=== PATIENT | female | born 1940 | race Caucasian/White ===

== ENCOUNTER 2023-11-23 09:54 | Emergency (ER) | payer MEDICARE, OTHER, SELFPAY ==
[2023-11-23] VITALS (9 sets, daily range): BP systolic 99–130; BP diastolic 43–95; PULSE 66–77; BMI 19.9
--- NOTE | 2023-11-23 10:59 | ED.GENMED ---
History of Present Illness
General
Chief Complaint: Dizziness
Source: patient and spouse
Exam Limitations: none
Time Seen by Provider: 11/23/23 10:27
Nursing documentation reviewed up to this point in time: agreed with
Travel History
Have you had any contact with someone who has COVID-19?: No
Do you have any symptoms of coronavirus? Fever > 100 degrees, chills, cough, shortness of breath, sore throat, loss of taste or smell, muscle aches, or headache?: No
History of Present Illness
History of Present Illness:
The patient is a 83-year-old female who is a history of A-fib, on Xarelto. She reports that over the last 2 to 3 days, she has had pretty continuous dizziness. She reports she has had vertigo before and it kind of feels like this but not exactly.
Patient also feels slightly lightheaded. She denies vision changes, palpitations, shortness of breath and chest pain. She denies recent nausea, vomiting, diarrhea and fever. Patient reports the symptoms wax and wane in intensity. She denies
recent congestion, ear pain and ear ringing. She denies headache.
Past History
Past History
ED Past Medical History: Arrthythmia (Paroxysmal atrial fibrillation.), GERD and Other (laryngeal reflux, vertigo)
ED Past Surgical History: Tonsilectomy
Social History
Tobacco: Non-smoker
Alcohol: None
Drug: None
Personal:
Living: with family
Employment: Retired
Family History
Family History: Other (nc)
Review of Systems
Review of Systems
Allergies reviewed?: Yes
All Other Systems: ROS reviewed and negative except as documented in HPI and ROS
Constitutional: Reports no symptoms
EENT: Reports no symptoms
Respiratory: Reports no symptoms
Cardiac: Reports no symptoms
ABD/GI: Reports no symptoms
: Reports no symptoms
Musculoskeletal: Reports no symptoms
Skin: Reports no symptoms
Neurological: Reports dizzy
Endocrine: Reports no symptoms
Hematologic/Lymphatic: Reports no symptoms
Psychiatric: Reports no symptoms
Phy Exam
Physical Exam
Physical Exam:
Physical Exam
General: no apparent distress, not acutely ill, well and comfortable appearing, smiling
Neck: supple. no meningeal signs. normal psoterior pharynx
Heart: s1/s2 regular rate and rhythm, no murmur. equal radial pulses.
Lungs: no acute respiratory distress. clear bilaterally
Abdomen: normal bowel sounds. not tender. no CVAT
Neuro: alert and orientedx3. no focal neurological deficits. Patient walk steadily to ED examining room. Extraocular muscles intact. 5 out of 5 strength in all extremities without drift. Normal [id number]. Normal
[id number] visual bojorquez intact
Skin: no rash
Psychiatric: well kept. interactive and cooperative
Extremities: no edema. no calf tenderness. negative homans. good distal pulses
Course
Orders/Labs/Results
Orders:
Orders
11/23/23 10:04
Electrocardiogram (*1) Urgent
Reason for Study: Chest Pain
EKG- Treatment ONCE
11/23/23 11:00
Orthostatic VS- Treatment ONCE
11/23/23 11:01
CT Head W/o Iv Contrast Urgent
Comment:
Reason For Exam: dizziness
11/23/23 11:47
Complete Blood Count/With Diff Urgent
Comprehensive Metabolic Panel Urgent
Lipase Urgent
Comment: ADD ON
Troponin I Urgent
Urinalysis Reflex To Culture Urgent
Date Specimen was Collected: 11/23/23
Time Specimen was Collected: 11:02
Urine Microscopic Reflex Cult Urgent
Urine Culture Urgent
OLGA LIDIA Source: U
Specimen Description:
Date Specimen was Collected: 11/23/23
Time Specimen was Collected: 11:02
11/23/23 12:37
Add On- LAB Urgent
Tests Added?: lipase
11/23/23 12:38
0.9% Sodium Chloride 1000 ml [Nss] 1,000 ml IV BOLUS
11/23/23 13:00
PT Consult [Pt Eval And Treat] Urgent
Treatment: dizziness
Activity Level: Out of Bed-Early Mobility
11/23/23 14:16
0.9% Sodium Chloride 500 ml [Nss] 500 ml IV BOLUS
11/23/23 15:32
Sulfamethox./Trimethoprim Ds [Bactrim Ds 800 mg/160 mg] 1 tablet PO NOW STA
Abnormal Lab Results
11/23/23
11:47
WBC 14.6 H 10^3/uL
(4.8-10.8)
RBC 3.76 L 10^6/uL
(4.20-5.40)
Hct 36.8 L %
(37.0-47.0)
MCH 33.2 H pg
(27.0-31.0)
MPV 10.9 H fL
(7.4-10.4)
Abs Immat Gran (auto) 0.1 H 10^3/uL
(0-0.05)
Absolute Neuts (auto) 12.6 H 10^3/uL
(1.4-6.5)
Absolute Lymphs (auto) 0.7 L 10^3/uL
(1.2-3.4)
Absolute Monos (auto) 1.2 H 10^3/uL
(0.1-0.6)
Neutrophils % 86.0 H %
(42.2-75.2)
Lymphocytes % 4.9 L %
(20.5-51.1)
BUN 22 H mg/dl
(7-17)
Creatinine 1.1 H mg/dL
(0.6-1.0)
Glucose 109 H mg/dl
(70-99)
AST 46 H U/L
(14-36)
Urine Ketones 1+ A
(Negative)
Ur Occult Blood Reflex 1+ A
(Negative)
Leukocyte Esterase Rfl 2+ A
(Negative)
Urine WBC (Reflex) 11-15 A /HPF
(0-5)
Urine Bacteria (Reflex) Few A
(Negative)
11/23/23 11:47
11/23/23 11:47
Vital Signs
Initial and Last Documented VS:
Initial Vital Signs
Temp Pulse Resp BP Pulse Ox
98.2 F 80 16 115/58 99
11/23/23 10:01 11/23/23 10:01 11/23/23 10:01 11/23/23 10:01 11/23/23 10:01
Last Documented Vital Signs
Temp Pulse Resp BP Pulse Ox
98.2 F 80 18 118/57 96
11/23/23 10:01 11/23/23 10:01 11/23/23 12:12 11/23/23 15:00 11/23/23 15:15
MDM/Problems Addressed
Differential Diagnosis Includes:
Orthostatic dizziness, CVA, benign positional vertigo
MDM/Problems Addressed:
Patient presents with acute dizziness
Chronic conditions affecting care: Arrhythmia
Acute Exacerbation and/or Progression of Chronic Illness: Arrhythmia
*Radiology
Radiology exam reviewed: radiology read reviewed
*Pulse Oximetry
Patient hypoxic: no
*EKG
Interpreted by ED Provider?: Yes
Interpretation: abnormal
Comparison EKG: no changes
Rate: normal
Rhythm: sinus
[place]: left axis deviation
Interval: normal interval
QRS Pattern: left vent hypertrophy
Ischemia: non-specific ST changes
*Card Dealer Interpretation
Rate: normal
Interpretation: normal
Rhythm: sinus
*Critical Care Note
Total Time (30-74mins, 75-104mins- exclusive of procedures): Not Applicable
Data Reviewed
Review of Other/Old Records Reveals: Other (Cardiology office note reviewed from 2020 patient reported history of chronic A-fib and left bundle branch block)
Source: patient and spouse
Update Note
Update Note:
12:53 PM patient still extremely well and comfortable. I told patient she has an elevated white blood cell count but she denies sore throat, recent fever, headache, cough and urinary symptoms. She denies being on recent thyroids. Is unclear what
is causing the white blood cell count to be elevated. Her lungs are completely clear and there is no clinical sign of pneumonia. She adamantly denies a cough. She adamantly denies abdominal pain and her abdomen remains soft and nontender
3 PM patient states she feels so much better with the IV fluids. I suspect her dizziness was due to an orthostatic cause, as her blood pressure dropped into the 90s when she stood up with physical therapy. Patient has a normal neurological exam
and there is no sign of stroke. she is walking around steadily
ED Attending Note
-
Portions of this chart may have been created with voice recognition software.� Occasional wrong word or��sound alike� substitutions may have occurred due to the inherent limitations of voice recognition software.
Discharge Plan
Departure
Patient Disposition: Home (Routine Discharge)
Date of Disposition: 11/23/23
Time of Disposition: 15:31
Patient with high blood pressure during this ER visit?: No
Condition: Good
Covid-19: Not Applicable
Discharge Problem:
Orthostatic dizziness, Acute UTI
Instructions: Urinary Tract Infection, Adult ED, Dizziness
Prescriptions:
New
sulfamethoxazole-trimethoprim [Bactrim DS] 800-160 mg tablet
1 tab PO BID Qty: 13 0RF
No Action
flaxseed-omega3,6,9-fatty acid 1 EACH capsule
1 ea PO Q48H
sodium chloride [Saline Nasal] 50 SPRAYS/45 ML aerosol,spray
1 spray NS BID
fish oil-dha-epa 1 EACH capsule
1 ea PO Q48H
Patient Comments:
alternates with the flaxseed
cholecalciferol (vitamin D3) 1,000 UNITS tablet
1,000 units PO DAILY
rivaroxaban [Xarelto] 20 MG tablet
20 mg PO QPM Qty: 30 3RF
diltiazem HCl 120 MG capsule,extended release 24hr
120 mg PO DAILY Qty: 30 11RF
Benefiber
1 t PO BID
propylene glycol [Systane Balance] 10 ML drops
20 ml OP BID
Referrals:
Eliseo Laughlin MD [Family Provider] -
Interventions
Interventions:
*Risk Screen - Suicide Last Done: 11/23/23 10:01
*General Assessment Last Done: 11/23/23 10:01
*Neglect/Abuse Screening Last Done: 11/23/23 10:01
ED- Fall Risk Assessment Last Done: 11/23/23 15:44
*ED COVID-19 Vaccine History Last Done: 11/23/23 10:21
*Nursing Disposition Last Done: 11/23/23 15:44
ED- Neurological Assessment Last Done: 11/23/23 10:21
Discharge Date and Time
Discharge Date/Time: 11/23/23 15:45
Print Language: GREEK
[2023-11-23 12:09] LABS: % Basophils 0.2 % (0-2); % Immature Granulocytes 0.4 % (0-0.5); % Lymphocytes 4.9 % (20.5-51.1); % Monocytes 8.5 % (1.7-9.3); Absolute Immature Granulocytes 0.1 10^3/uL (0-0.05); Absolute Lymphocytes 0.7 10^3/uL (1.2-3.4); Absolute Monocytes 1.2 10^3/uL (0.1-0.6); Absolute Neutrophils 12.6 10^3/uL (1.4-6.5); Hematocrit 36.8 % (37.0-47.0); Hemoglobin 12.5 g/dL (12.0-16.0); Mean Corpuscular Hgb 33.2 pg (27.0-31.0); Mean Corpuscular Volume 97.9 fL (81.0-99.0); Mean Platelet Volume 10.9 fL (7.4-10.4); Nucleated Red Blood Cells % 0 %; Platelet Count 265 10^3/uL (130-400); Red Blood Cell Count 3.76 10^6/uL (4.20-5.40); Red Cell Dist. Width 12.6 % (11.5-14.5); White Blood Cell Count 14.6 10^3/uL (4.8-10.8)
[2023-11-23 12:15] LABS: ALT (SGPT) 28 U/L (0-35); AST (SGOT) 46 U/L (14-36); Albumin 4.2 g/dl (3.5-5.0); Alkaline Phosphatase 106 U/L (38-126); Blood Urea Nitrogen 22 mg/dl (7-17); Calcium 9.7 mg/dl (8.4-10.2); Carbon Dioxide 23 mmol/L (22-30); Chloride 100 mmol/L (98-107); Estimated Creatinine Clearance 31 ml/min; Glucose 109 mg/dl (70-99); Potassium 4.1 mmol/L (3.5-5.1); Sodium 138 mmol/L (135-145); Total Protein 7.8 g/dl (6.3-8.2); eGFR 49.86
[2023-11-23 12:26] LABS: Troponin I < 0.012 ng/ml
[2023-11-23] MEDS: NSS 1000 IV (12:42)
[2023-11-23] MEDS: NSS 500 IV (14:18)
[2023-11-23 14:25] LABS: Lipase 292 U/L (23-300)
[2023-11-23 15:10] LABS: Urine Albumin Trace (Neg - Trace); Urine Bilirubin Negative (Negative); Urine Character Clear (Clear); Urine Color Yellow; Urine Glucose Negative (Negative); Urine Ketone 1+ (Negative); Urine Leukocyte 2+ (Negative); Urine Nitrite Negative (Negative); Urine Occult Blood 1+ (Negative); Urine Specific Gravity 1.015 (<1.030); Urine Urobilinogen Negative (Neg - 1+)
[2023-11-23 15:31] LABS: Urine Mucus Few
[2023-11-23 15:32] LABS: Urine Bacteria Few (Negative)
[2023-11-23 15:33] LABS: Urine Red Blood Cell 0-2 /HPF (0-2)
[2023-11-23] MEDS: BACTRIM DS 800 MG/160 MG 1 TABLET PO (15:39)
== END 2023-11-23 15:45 | disposition home or self-care (01) ==
LOC: EMR 09:54
PROVIDERS: EMERGENCY PHYSICIAN Emergency Medicine; FAMILY PHYSICIAN Internal Medicine
DX: N39.0 Urinary tract infection, site not specified (principal); R42 Dizziness and giddiness; W19.XXXA Unspecified fall, initial encounter; I44.7 Left bundle-branch block, unspecified; I48.0 Paroxysmal atrial fibrillation; K21.9 Gastro-esophageal reflux disease without esophagitis; Z79.01 Long term (current) use of anticoagulants
CPT/HCPCS: 99284; 96360; 96361; 70450; 80053; 81003; 81015; 83690; 84484; 85025; 87086; 93005

== ENCOUNTER → 2024-08-04 14:01 | Outpatient (REF) | payer MEDICARE, OTHER, SELFPAY | LOC: PAVMRI 14:01 | PROVIDERS: ATTENDING PHYSICIAN Internal Medicine | DX: K86.2 Cyst of pancreas (principal) | CPT/HCPCS: 74183; A9575 ==